=== PATIENT | male | born 1995 | race Caucasian/White ===

== ENCOUNTER 2022-05-23 13:40 | Outpatient (REF) | payer OTHER, SELFPAY ==
--- NOTE | ~2022-05-23 | US_ITS ---
EXAMINATION: US SCROTUM CLINICAL INFORMATION: Scrotal pain.. COMPARISON: None TECHNIQUE: A sonogram of the scrotum was performed assessing choudhary-scale appearance and color Doppler flow. Spectral Doppler analysis of the arterial and venous flow were performed in the testes bilaterally. FINDINGS: RIGHT: Right testicle measures 4 x 2 x 2.9 cm, volume 12.1 mL. No focal testicular parenchymal lesions are visualized. Spectral Doppler analysis of the arterial and venous flow is normal in the right testis. Right epididymal head is normal in size. Small cyst in the head of the epididymis. No right hydrocele or varicocele is seen. Right epididymal Doppler flow is normal. LEFT: Left testicle measures 3.9 x 2.2 x 2.9 cm, volume 12.9 mL. No focal testicular parenchymal lesions are visualized. Spectral Doppler analysis of the arterial and venous flow is normal in the left testis. Left epididymal head is normal in size. Small cyst in the head of the epididymis. No left hydrocele or varicocele is seen. Left epididymal Doppler flow is normal. US/US scrotum doppler IMPRESSION: Normal ultrasound of the scrotum.
--- NOTE | ~2022-05-23 | US_ITS ---
EXAMINATION: US SCROTUM CLINICAL INFORMATION: Scrotal pain.. COMPARISON: None TECHNIQUE: A sonogram of the scrotum was performed assessing choudhary-scale appearance and color Doppler flow. Spectral Doppler analysis of the arterial and venous flow were performed in the testes bilaterally. FINDINGS: RIGHT: Right testicle measures 4 x 2 x 2.9 cm, volume 12.1 mL. No focal testicular parenchymal lesions are visualized. Spectral Doppler analysis of the arterial and venous flow is normal in the right testis. Right epididymal head is normal in size. Small cyst in the head of the epididymis. No right hydrocele or varicocele is seen. Right epididymal Doppler flow is normal. LEFT: Left testicle measures 3.9 x 2.2 x 2.9 cm, volume 12.9 mL. No focal testicular parenchymal lesions are visualized. Spectral Doppler analysis of the arterial and venous flow is normal in the left testis. Left epididymal head is normal in size. Small cyst in the head of the epididymis. No left hydrocele or varicocele is seen. Left epididymal Doppler flow is normal. US/US scrotum IMPRESSION: Normal ultrasound of the scrotum.
[2022-05-23 17:20] LABS: Appearance Urine Clear; Color Urine Yellow; Glucose Urine UA Negative (Negative); Leukocyte Esterase Urine Negative (Negative); Nitrite Urine Negative (Negative); PH 6.5 (5.0-9.0); Specific Gravity - Urine 1.025 (1.005-1.025); Urine Blood Negative (Negative); Urine Ketones Negative (Negative); Urine Protein Negative (Neg-Trace)
[2022-05-24 09:47] LABS: CT PCR NOT DETECTED (Not Detect.); NG PCR NOT DETECTED (Not Detect.)
== END 2022-05-23 13:41 | disposition home or self-care (01) ==
LOC: HO.HMGCX 13:40
PROVIDERS: Visit Provider Nurse Practitioner Family
DX: N50.819 Testicular pain, unspecified (principal)
CPT/HCPCS: 0353U; 76870; 81003; 93975

== ENCOUNTER 2024-08-27 14:06 | Outpatient (REF) | payer OTHER, SELFPAY ==
--- OUTSIDE RECORDS SUMMARY | 2024-08-27 16:29 | XMS_ITS | Encounter Summary ---
Author Organization [facility] Address [address] [place] [address] Care Team Providers Care Skin Peeling Machine Operator Name Role Phone Gallo Choi MD Primary Care Provider Jassi Kumar, Pcp Primary Care Provider Unavailabl e Encounter Details Date Type Department Care Team Description 11/27/2012 Machining Department Supervisor Report Medical Records [address] [place] [id number] Cedric Cyr Social History Tobacco Use Types Packs/Day Years Used Date Smoking Tobacco: Never Alcohol Use Standard Drinks/Week Comments Not Asked 0 (1 standard drink = 0.6 oz pur e alcohol) Sex Assigned at Date Recorded Not on file documented as of this encounter Plan of Treatment Not on file documented as of this encounter Visit Diagnoses Not on filedocumented in this encounter Care Teams Skin Peeling Machine Operator Relationship Specialty Start Date End Date Gallo Choi MD PCP - General Pediatrics 08/17/12 11/27/16 [facility], Pcp PCP - General Internal Medicine 11/28/16 documented as of this encounter
--- OUTSIDE RECORDS SUMMARY | 2024-08-27 16:29 | XMS_ITS | Encounter Summary ---
Author Organization [facility] Address [address] [place] [address] Care Team Providers Care Alcohol Rubber Name Role Phone Gallo Choi MD Primary Care Provider Jassi roberts [facility], Pcp Primary Care Provider Unavailabl e Encounter Details Date Type Department Care Team Description 02/10/2015 Release of Information Medical Records [address] [place] [id number] Abstract, Provider Social History Tobacco Use Types Packs/Day Years Used Date Smoking Tobacco: Never Alcohol Use Standard Drinks/Week Comments Not Asked 0 (1 standard drink = 0.6 oz pur e alcohol) Sex Assigned at Date Recorded Not on file documented as of this encounter Plan of Treatment Not on file documented as of this encounter Visit Diagnoses Not on filedocumented in this encounter Care Teams Alcohol Rubber Relationship Specialty Start Date End Date Gallo Choi MD PCP - General Pediatrics 08/17/12 11/27/16 [facility], Pcp PCP - General Internal Medicine 11/28/16 documented as of this encounter
--- OUTSIDE RECORDS SUMMARY | 2024-08-27 16:29 | XMS_ITS | Encounter Summary ---
Author Organization [facility] Address [address] [place] [address] Care Team Providers Care Instructor Decorating Name Role Phone Community, Pcp Primary Care Provider Unavailabl e Encounter Details Date Type Department Care Team Description 04/13/2019 Land Reclamation Specialist Report Medical Records [address] [place] [id number] Delia Stacy MD Social History Tobacco Use Types Packs/Day Years Used Date Smoking Tobacco: Never Alcohol Use Standard Drinks/Week Comments Not Asked 0 (1 standard drink = 0.6 oz pur e alcohol) Sex Assigned at Date Recorded Not on file documented as of this encounter Plan of Treatment Not on file documented as of this encounter Visit Diagnoses Not on filedocumented in this encounter Care Teams Instructor Decorating Relationship Specialty Start Date End Date Community, Pcp PCP - General Internal Medicine 11/28/16 documented as of this encounter
--- OUTSIDE RECORDS SUMMARY | 2024-08-27 16:29 | XMS_ITS | Clinical Summary ---
Author Organization [facility] Address [address] [place] [address] Care Team Providers Care Cloud Services Architect Name Role Phone Community, Pcp Primary Care Provider Unavailabl e Allergies No known active allergies Medications No known medications Active Problems Problem Noted Date Elevated liver enzymes 03/13/2015 Overview: 03/13/15 liver US ordered and ref to GI 05/08/15 Liver US: steatosis Childhood obesity 02/09/2015 Convulsions 02/06/2005 Overview: 6TH EPISODE BY HX. 04/12/[address] HACKETT MRI-WNL/EEG-WNL/PYRODOXIN LEVEL- NL Non-issue since first year. Immunizations Name Administration Dates Next Due DTP 04/28/2001 DTaP 04/28/2001, 9,1997, 998,1997 Gardasil 9 (Hpv) 02/08/2015 HIB 1997,1997,1997 Hepatitis B-3 Dose (<19yrs) 1997, 7,1997 Influenza (> 6 Months) 02/08/2015,01/15/2010, Influenza H1N1 Pandemic Flu Vaccine 03/14/2009 MMR (Jmbmhex-Fjbup-Xkbdtoh) 04/28/2001, 0 Meningococcal (Menactra) 02/08/2015,01/04/2009 POLIO VIRUS INJECTION 04/28/2001 Polio (IPV) 04/28/2001,1997,1997 Polio (OPV) 02/09/1998 Tdap 01/04/2009 Varicella 01/04/2009,02/09/1998 Family History Medical History Relation Name Comments Cancer, Other Maternal Grandmother CERVIA ELISA/OVARIAN Diabetes Paternal Grandfather Relation Name Status Comments Father Alive 04/07/57 Maternal Grandmother Mother Alive 04/13/71 Paternal Grandfather Sister Alive YOSI/ 6 Social History Tobacco Use Types Packs/Day Years Used Date Smoking Tobacco: Never Alcohol Use Standard Drinks/Week Comments Not Asked 0 (1 standard drink = 0.6 oz pur e alcohol) Sex Assigned at Date Recorded Not on file Last Filed Vital Signs Vital Sign Reading Time Taken Comments Blood Pressure 118/74 04/06/2015 9:47 AM EST Pulse 84 04/06/2015 9:47 AM EST Temperature 36.2 ??C (97.2 ??F) 04/06/2015 9:47 AM ES T Respiratory Rate 12 04/06/2015 9:47 AM EST Oxygen Saturation - - Inhaled Oxygen Concentration - - Weight 125.4 kg (276 lb 6.4 oz) 04/06/2015 9:47 AM EST Height 188 cm (6' 2 ) 04/06/2015 9:47 AM EST Body Mass Index 35.49 04/06/2015 9:47 AM EST Plan of Treatment Health Maintenance Due Date Last Done Comments Covid-19 Vaccine (#1) 1997 TOBACCO CHECK/ADVISE 2015 PNEUMOCOCCAL VACCINE FOR HIG H RISK PATIENTS (#1) 02/03/2016 DTAP/TDAP/TD (7 - Td or Tdap) 01/04/2019, 04/28/2001, 04/28/2001, Additional history exists BASELINE HEALTH EXAM 18-39 02/09/2020 02/08/2015 CHOLESTEROL SCREENING 03/13/2020 03/13/2015 BMI CHECK/ADVISE 04/14/2024 04/06/2015, , 02/08/2015, Additional history exists INFLUENZA (Season Ended) 2024 015, 01/15/2010, 01/04/2009 Care Teams Cloud Services Architect Relationship Specialty Start Date End Date Community, Pcp PCP - General Internal Medicine 11/28/16
== END 2024-08-27 14:07 | disposition home or self-care (01) ==
LOC: HO.LAB 14:06
PROVIDERS: Visit Provider Physician Assistant
DX: N39.0 Urinary tract infection, site not specified (principal)
CPT/HCPCS: 81003; 87086

== ENCOUNTER 2024-08-27 14:06 | Outpatient (AMB) | payer OTHER, SELFPAY ==
--- NOTE | 2024-08-27 14:46 | AM.OFFWIN_ITS ---
Intake Vital Signs 08/27/24 14:54 Height 6 ft 4 in BP 130/80 Blood Pressure Location Lt brachial Position Sitting Pulse 67 Pulse Source Pulse Oximeter Pulse Oximetry (%) 98 Oxygen Delivery Method Room Air Intake Visit Reasons: EP UTI? Intake Note: Patient here for lower back pain, testicle pain that has been present for about 1 week. Patient Tobacco Use Status: Never used Tobacco Allergies No Known Allergies Allergy (Verified 08/27/24 14:53) Do you need a note to return to daycare/school/sports/work: No HPI HPI Comments History of Present Illness Details History of Present Illness - The patient is a 29-year-old male pres enting with suspected urinary tract infection. - Experiences of bilateral testicular an d lower back pain are his symptoms, he says he had a UTI 2 years ago and this feels the same way. The pain began a week and a day prior. - Patient denies urinary discharge, pain during urination, blood in his urine, or fever at this time, although similar symptoms had presented two years ago. - No history of kidney stones or recent unprotected sexual activity was reported. - Pain does not exhibit radiation patter ns to the flank or groin region. Physical Exam General: Cooperative, healthy appearing, comfortable, no acute distress and well developed Orientation: Patient oriented x3 Limitations: No limitations Head: Normal to inspection Ears: Hearing grossly normal bilaterally Nose: Normal External nose present Face and sinus: Normal facial exam Eyes: Appearance normal, both eyes and all related structures Neck: Normal visual inspection and Yes full ROM Respiratory: Normal respiratory effort and able to speak in complete sentences. Skin: No rashes or lesions noted Neuro: Patient oriented x3 Extremities: Normal to inspection COUNT INCLUDES THE [facility] Social History Patient Tobacco Use Status: Never used Tobacco Review of Systems Const All systems reviewed & are unremarkable except as noted in HPI and below Physical Exam Vital Signs: Last Vital Signs Pulse 67 08/27/24 14:54 BP 130/80 08/27/24 14:54 Pulse Ox 98 08/27/24 14:54 Oxygen Delivery Method Room Air 08/27/24 14:54 Assessment & Plan Assessment & Plan (1) UTI (urinary tract infection): Code(s): N39.0 - Urinary tract infection, site not specified Qualifiers: Urinary tract infection type: site unspecified Hematuria presence: without hematuria Qualified Code(s): N39.0 - Urinary tract infection, site not specified Plan: UA neg leuks, nitrites and blood. The patient will undergo a urine culture to verify the suspected urinary tract infection. Initiation of cefuroxime, an antibiotic, is scheduled every 12 hours for a five-day course, owing to its efficacy and the patient's lack of allergies. If the culture returns with resistant bacteria, alternative treatment will be discussed. The management plan involves active monitoring of symptoms, and I will update the patient as culture results become available to ensure accurate treatment adjustments if necessary. Patient was instructed to go to the emergency department if he experiences any worsening of the bilateral testicle pain, fevers or sees blood in his urine. Patient was informed and verbally consented to the use of an ambient scribe for clinic note documentation during this visit. Medications: New cefuroxime axetil 500 mg PO Q12H 10 tabs 0RF Coding Level of Care Code New Pt Level 3 (53730) Diagnoses Urinary tract infection without hematuria, site unspecified N39.0 Urinary tract infection type: site unspecified Hematuria presence: without hematuria
[2024-08-27 14:54] VITALS: BP 130/80; PULSE 67; O2SAT 98
== END 2024-08-27 15:25 | disposition home or self-care (01) ==
PROVIDERS: Visit Provider Physician Assistant
DX: N39.0 Urinary tract infection, site not specified (principal); Z13.9 Encounter for screening, unspecified